=== PATIENT | male | born 1990 | race Caucasian/White ===

== ENCOUNTER 2018-06-10 09:30 | Outpatient (CLI) | payer MEDICAID, SELFPAY ==
--- NOTE | 2018-06-10 09:16 | DI.RAD_ITS ---
SYMPTOMS/DIAGNOSIS: RT WRIST PAIN RIGHT WRIST: Four views. No priors. No bone, joint or soft tissue abnormality is identified.
== END 2018-06-10 09:50 ==
PROVIDERS: PCP Internal Medicine; Visit Provider Physician Assistant
DX: M25.531 Pain in right wrist (principal)
CPT/HCPCS: 73110

== ENCOUNTER 2018-06-10 15:38 | Outpatient (CLI) | payer MEDICAID, SELFPAY ==
--- NOTE | 2018-06-10 09:33 | DI.RAD_ITS ---
SYMPTOMS/DIAGNOSIS: RT SHOULDER PAIN RIGHT SHOULDER: Two views. Comparison 08/09/15. No bone, joint or soft tissue abnormality is identified.
== END 2018-06-10 15:58 ==
PROVIDERS: PCP Internal Medicine; Visit Provider Physician Assistant
DX: M25.511 Pain in right shoulder (principal)
CPT/HCPCS: 73030

== ENCOUNTER 2018-06-14 01:55 | Outpatient (CLI) | payer MEDICAID, SELFPAY ==
--- NOTE | 2018-06-14 14:26 | DI.CT_ITS ---
SYMPTOM/DIAGNOSIS: RT WRIST PAIN, M25.[address]: Multiple contiguous axial images of the right wrist were obtained. Sagittal and coronal reformatted images were evaluated on the Siemens work station. No acute fracture or dislocation is seen. The bones are normally mineralized. No suspicious lytic or sclerotic lesions are seen. The joint spaces are well maintained. The soft tissues appear grossly unremarkable on this noncontrast examination. No soft tissue mass or focal fluid collection is appreciated. IMPRESSION: Negative examination. If there is continued concern for soft tissue, ligament or tendon injury, MRI should be considered for further evaluation.
== END 2018-06-14 02:15 ==
PROVIDERS: PCP Internal Medicine; Visit Provider Orthopaedic Surgery
DX: M25.531 Pain in right wrist (principal)
CPT/HCPCS: 73200

== ENCOUNTER 2018-07-14 00:21 | Outpatient (CLI) | payer MEDICAID, SELFPAY ==
--- NOTE | 2018-07-14 14:39 | DI.MRI_ITS ---
SYMPTOMS/DIAGNOSIS: CYST IN LUNATE BONE, M85.40, PAIN, LOCKING MRI OF THE RIGHT WRIST: Routine noncontrast examination was performed. A marker was placed on the volar aspect of the wrist at the level of the radiocarpal joint. The marrow signal is within normal limits. No evidence of an occult fracture or avascular necrosis. No cyst is seen in the lunate. The triangular fibrocartilage appears well maintained. The scapholunate ligament appears intact. The carpal tunnel appears grossly unremarkable. The tendons in the dorsum and volar aspects of the wrists are unremarkable. There is a small fluid collection seen adjacent to the volar aspect of the ulnar styloid process measuring 0.7 x 0.4 cm. This may represent a small ganglion cyst. No other focal fluid collection is seen. No soft tissue masses are appreciated. The muscles show normal signal and size. No significant muscular fatty atrophy is appreciated. IMPRESSION: 1. No evidence of a cyst within the lunate. 2. A 0.7 cm cystic lesion adjacent to the ulnar styloid process. This may represent a small ganglion cyst.
== END 2018-07-14 00:41 ==
PROVIDERS: PCP Internal Medicine; Visit Provider Orthopaedic Surgery
DX: M25.531 Pain in right wrist (principal); M25.832 Other specified joint disorders, left wrist
CPT/HCPCS: 73221

== ENCOUNTER 2018-07-23 07:47 | Outpatient (CLI) | payer MEDICAID, SELFPAY ==
--- NOTE | 2018-07-23 10:53 | W.PREOPHP ---
Date of service: 07/23/18 Time of Service: 09:55 Assessment and Plan (1) Arthritis of right acromioclavicular joint: Current visit: No Status: Chronic Chronic AC joint DJD changes with overhead lifting pain and cross arm abduction pain. The anatomy operative procedure and typical postop course is reviewed with Chava as well as the few complications that can occur with surgery consisting of infection and stiffness post surgery that does not improve with shoulder range of motion at home and/or with PT. History of Present Illness This 27-year-old [id number] male has been troubled by chronic shoulder pain of an atraumatic nature over the last 3-4 years typically getting subacromial space injection yearly which afforded some brief relief of discomfort but no long lasting relief the last injection he received gave him about 1 months discomfort improvement. He notes pain especially with abduction at the 90 degree gregory and further. X-rays done to workup his problem have shown increased DJD changes at his AC joint with normal glenohumeral joint and no ectopic calcifications. Dr. Camargo has evaluated Chava and recommended distal clavicle resection since conservative measures are not affording any long lasting relief.. Narrative: right shoulder pain Pertinent Surgical Information Denies previous medical history of: stroke, TIA, [place], use of sublingual nitroglycerin, GERD, seizures, diabetes, thyroid disease, sleep apnea, liver disease, hepatitis, hematologic disorders Denies previous complications from surgery or anesthesic agents with respect to high fever, prolonged vomiting and difficulty waking up Review of Systems Constitutional Denies fever(s) ENT Reports nasal congestion, Reports nasal discharge and Reports sore throat Cardiovascular Denies chest pain, Denies chest pain with activity, Denies palpitations, Denies dyspnea on exertion, Denies orthopnea and Denies paroxysmal nocturnal dyspnea Respiratory Denies cough, Denies excessive phlegm production, Denies pain on inspiration, Denies dyspnea on exertion and Denies wheezing Gastrointestinal Denies abdominal pain, Denies melena, Denies hematochezia, Denies nausea and Denies vomiting Genitourinary Denies hematuria, Denies dysuria and Denies urinary frequency Comments: Denies burning sensation with urination Musculoskeletal Reports as per HPI Psychiatric Denies anxiety and Denies depression Endocrine Denies palpitations Allergic/Immunologic Denies wheezing [facility] Surgical History H/O nasal septoplasty (Acute) History of bone graft (Acute) Repair, Cleft Palate (Chronic) Social History Smoking/Tobacco Use Status: Never Drug use: Never Substance use type: does not use Do you feel safe at home: Yes Do you feel safe in your relationship?: Yes Meds Home Medications Medication Instructions Recorded Confirmed Type ibuprofen 600 mg PO PRN PRN 07/23/18 07/23/18 History multivitamin 1 tab PO DAILY 07/23/18 07/23/18 History oxymetazoline [Nasal [place] 2 spray INTRANASAL Q12H PRN 07/23/18 07/23/18 History (oxymetazoline)] phenol [Chloraseptic Throat [place]] 4 spray MUCOUS MEMBRANE Q4H PRN 07/23/18 07/23/18 History Allergies Allergy/AdvReac Type Severity Reaction Status Date / Time No Known Drug Allergies Allergy Unverified 07/23/18 09:03 Exam Const General: cooperative HENMT Throat: posterior oropharynx normal Eyes General: appearance normal, both eyes and all related structures Conjunctivae: conjunctivae normal Sclera: sclerae normal Neck Neck: no JVD Carotids: normal carotid upstroke and no bruits Resp Effort & Inspection: normal respiratory effort and able to speak in complete sentences Auscultation: clear to auscultation bilaterally, no rales, no rhonchi and no wheezes Cardio Rate: regular rate Heart Sounds: S1 normal, S2 normal and no murmurs Bruits: no abdominal aortic bruits Pulses: normal peripheral pulses Other: No pulsatile mass noted with palpation over the abdominal aorta GI Palpation: soft and no hepatosplenomegaly Auscultation: normal bowel sounds General: No CVA tenderness Extrem General: no pedal edema Other: Right shoulder shows point tenderness over AC joint with pain with abduction at 90-120 degree gregory. He has pain with scarf testing normal rotator cuff strength with resisted external rotation resisted abduction and belly press testing.
--- NOTE | 2018-07-23 11:19 | HPE_ITS ---
Date of service: 07/23/18 Time of Service: 09:55 Assessment and Plan (1) Arthritis of right acromioclavicular joint: Current visit: No Status: Chronic Chronic AC joint DJD changes with overhead lifting pain and cross arm abduction pain. The anatomy operative procedure and typical postop course is reviewed with Chava as well as the few complications that can occur with surgery consisting of infection and stiffness post surgery that does not improve with shoulder range of motion at home and/or with PT. History of Present Illness This 27-year-old [id number]-zbginuzx male has been troubled by chronic shoulder pain of an atraumatic nature over the last 3-4 years typically getting subacromial space injection yearly which afforded some brief relief of discomfort but no long lasting relief the last injection he received gave him about 1 months discomfort improvement. He notes pain especially with abduction at the 90 degree gregory and further. X-rays done to workup his problem have shown increased DJD changes at his AC joint with normal glenohumeral joint and no ectopic calcifications. Dr. Camargo has evaluated Chava and recommended distal clavicle resection since conservative measures are not affording any long lasting relief.. Narrative: right shoulder pain Pertinent Surgical Information Denies previous medical history of: stroke, TIA, [place], use of sublingual nitroglycerin, GERD, seizures, diabetes, thyroid disease, sleep apnea, liver disease, hepatitis, hematologic disorders Denies previous complications from surgery or anesthesic agents with respect to high fever, prolonged vomiting and difficulty waking up Review of Systems Constitutional Denies fever(s) ENT Reports nasal congestion, Reports nasal discharge and Reports sore throat Cardiovascular Denies chest pain, Denies chest pain with activity, Denies palpitations, Denies dyspnea on exertion, Denies orthopnea and Denies paroxysmal nocturnal dyspnea Respiratory Denies cough, Denies excessive phlegm production, Denies pain on inspiration, Denies dyspnea on exertion and Denies wheezing Gastrointestinal Denies abdominal pain, Denies melena, Denies hematochezia, Denies nausea and Denies vomiting Genitourinary Denies hematuria, Denies dysuria and Denies urinary frequency Comments: Denies burning sensation with urination Musculoskeletal Reports as per HPI Psychiatric Denies anxiety and Denies depression Endocrine Denies palpitations Allergic/Immunologic Denies wheezing [facility] Surgical History H/O nasal septoplasty (Acute) History of bone graft (Acute) Repair, Cleft Palate (Chronic) Social History Smoking/Tobacco Use Status: Never Drug use: Never Substance use type: does not use Do you feel safe at home: Yes Do you feel safe in your relationship?: Yes Meds Home Medications Medication Instructions Recorded Confirmed Type ibuprofen 600 mg PO PRN PRN 07/23/18 07/23/18 History multivitamin 1 tab PO DAILY 07/23/18 07/23/18 History oxymetazoline [Nasal [place] 2 spray INTRANASAL Q12H PRN 07/23/18 07/23/18 History (oxymetazoline)] phenol [Chloraseptic Throat [place]] 4 spray MUCOUS MEMBRANE Q4H PRN 07/23/18 07/23/18 History Allergies Allergy/AdvReac Type Severity Reaction Status Date / Time No Known Drug Allergies Allergy Unverified 07/23/18 09:03 Exam Const General: cooperative HENMT Throat: posterior oropharynx normal Eyes General: appearance normal, both eyes and all related structures Conjunctivae: conjunctivae normal Sclera: sclerae normal Neck Neck: no JVD Carotids: normal carotid upstroke and no bruits Resp Effort & Inspection: normal respiratory effort and able to speak in complete sentences Auscultation: clear to auscultation bilaterally, no rales, no rhonchi and no wheezes Cardio Rate: regular rate Heart Sounds: S1 normal, S2 normal and no murmurs Bruits: no abdominal aortic bruits Pulses: normal peripheral pulses Other: No pulsatile mass noted with palpation over the abdominal aorta GI Palpation: soft and no hepatosplenomegaly Auscultation: normal bowel sounds General: No CVA tenderness Extrem General: no pedal edema Other: Right shoulder shows point tenderness over AC joint with pain with abduction at 90-120 degree gregory. He has pain with scarf testing normal rotator cuff strength with resisted external rotation resisted abduction and belly press testing.
== END 2018-07-23 08:07 ==
PROVIDERS: PCP Internal Medicine; Visit Provider Orthopaedic Surgery
DX: M19.011 Primary osteoarthritis, right shoulder (principal); Z01.818 Encounter for other preprocedural examination

== ENCOUNTER 2018-07-26 11:21 | Day surgery (SDC) | payer MEDICAID, SELFPAY ==
[2018-07-26] VITALS (7 sets, daily range): BP systolic 118–136; BP diastolic 78–84; PULSE 64–80; RESP 11–16; TEMP 35.1–36.5; O2SAT 96–98
[2018-07-26] MEDS: Lactated Ringers 1,000 ML 80 ML IV (12:17)
[2018-07-26] MEDS: ceFAZolin 2 GM/50 ML BAG IVPB (14:19)
--- NOTE | 2018-07-26 14:53 | PDOC.DSDIS_ITS ---
Discharge Plan Disposition Patient Disposition: HOME Condition: Good Discharge Details Reason For Visit: Excision R distal clavicle Attending Provider: Nahum Camargo Primary Care Provider: Myesha Carrington Home Meds and New Rx's Prescriptions: New oxycodone-acetaminophen 5-325 mg tablet 1 tab PO Q6H PRN (Reason: pain) Qty: 10 RF: 0 Continued ibuprofen 200 mg Capsule 600 mg PO PRN PRNRF: 0 multivitamin Tablet,Chewable 1 tab PO DAILY RF: 0 Chloraseptic Throat [place] 1.4 % Aerosol,St[place]div[place] 4 spray MUCOUS MEMBRANE Q4H PRNRF: 0 oxymetazoline [Nasal [place] (oxymetazoline)] 0.05 % [place],Non-Aerosol 2 spray INTRANASAL Q12H PRNRF: 0 Discharge Instructions Additional Instructions: Take ibuprofen 600-800 mg every 6hours as needed for mild pain. Take oxycodone, in addition, for breakthru pain if needed. Apply cryocuff to R shoulder continuously overnite tonite. Tomorrow, start to use 4 times/day for 1 hour each time. Sling for comfort. Discontinue sling as soon as your discomfort allows. May remove dressings, shower and get incision wet after 72 hours. Leave incision uncovered when it is dry and sealed. Follow up with in 2 weeks. Stand Alone Forms: DSU Post op Instructions, Alex Davis ([facility]) Referrals: Nahum Camargo MD [ [facility] STAFF PHYSICIAN] - (f/u in 2 weeks.) Equipment/Supplies: Sling Activity:: Activity as Tolerated Remove Dressings/Wound Care:: 72 hours Shower/Bathe:: 72 hours Diet:: As Tolerated Discharge Orders Discharge Orders: Discharge Order (Routine); Ordered 07/26/18 Ordered By: Nahum Camargo DS: Diagnosis Discharge Diagnosis (1) Arthritis of right acromioclavicular joint: Status: Chronic
--- NOTE | 2018-07-27 16:24 | ROE_ITS ---
DATE OF PROCEDURE: July 26, 2018 PREOPERATIVE DIAGNOSIS: DJD AC joint, right. POSTOPERATIVE DIAGNOSIS: Same. PROCEDURE: Excision distal clavicle, right. ANESTHESIA: General. SURGEON: Nahum Camargo M.D. PAYROLL DIRECTOR: Larry Bautista INDICATIONS: This is a 27-year-old white male with long-standing history of pain localized to the ri ght AC joint. In the past he had gotten relief from subacromial space injections. His pain has prog ressed to the point where the injections are no longer providing long-term relief. His pain is aggra vated by use of his right hand above shoulder level. Excision of the distal clavicle was recommended to decompress his AC joint and alleviate his pain on a permanent basis. The risks and complications of the procedure were explained to the patient in detail preoperatively. PROCEDURE: The patient was taken to the Operating Room on 07/26/18. He was placed supine on the oper ating table and a general anesthetic was administered. He was then placed in the benson chair positi on. The right shoulder was prepped and draped free in the usual sterile fashion. An incision was made on the superior aspect of the shoulder, centered over the AC joint; the incision was about three inches in length. The incision was carried down through the skin and subcu to the c apsule of the AC joint. The subcutaneous veins were cauterized. An incision was made on the superio r AC joint capsule and the distal clavicle was subperiosteally exposed. The distal clavicle was lopez sected with an oscillating saw and the distal centimeter of the clavicle was excised. On inspection there was no normal articular cartilage left on the distal clavicle, consistent with DJD. The resect ed end of the clavicle was irrigated with saline solution and packed with bone was to limit postop bl eeding. The wound margins, starting with the AC joint capsule and progressing up to the skin, were i nfiltrated with 0.5% Marcaine with an epinephrine solution. The AC joint capsule and periosteum over the distal clavicle were approximated with interrupted [id number] sutures of #1 Vicryl suture m aterial. The subcu was approximated with interrupted #2-0 Vicryl sutures. The skin edges were appro ximated with a running subcuticular suture of #4-0 Vicryl, supplemented with Steri-Strips. Sterile d ressings were applied followed by a light pressure dressing to the right shoulder. The patient's arm was placed in a sling. His anesthesia was reversed without complications. He was discharged to the recovery room in good condition. The patient was discharged home from the Day Surgery Unit when fully recovered from his general anest hesia. He was given instructions to use the sling for comfort. He should discontinue the sling as s oon as discomfort allows. He may remove his dressings, shower and get his incision wet after 72 hour s. He can leave his incision uncovered when it is dry and sealed. He may move his right upper extre mity within limits of pain. He was given a prescription for breakthrough pain of Oxycodone with APAP 5/325, one tablet every six hours, as needed. He will take Tylenol or ibuprofen for mild pain. He will follow-up with me in two weeks.
== END 2018-07-26 16:34 | disposition home or self-care (01) ==
PROVIDERS: PCP Internal Medicine; Visit Provider Orthopaedic Surgery
PROC: (CPT 23120; principal; 2018-07-26 12:30)
DX: M19.011 Primary osteoarthritis, right shoulder (principal); G89.29 Other chronic pain; M25.511 Pain in right shoulder
CPT/HCPCS: 23120; J0690; J1100; J1885; J2250; J2405; J3010; L3650

== ENCOUNTER 2019-12-05 02:11 | Outpatient (CLI) | payer OTHER, MEDICAID, SELFPAY ==
--- NOTE | 2019-12-05 08:45 | DI.US_ITS ---
EXAM: US HERNIA CLINICAL HISTORY: Possible inguinal hernia, exam equivacable, LT GROIN PAIN, R10.32. TECHNIQUE: Ultrasound was performed using standard protocol. COMPARISON: No exams were available for comparison FINDINGS: Sonographic assessment utilizing grayscale and color Doppler imaging was performed and targeted to th e area of clinical concern. Left lower quadrant and mid lower abdomen was evaluated sonographically for evidence of a hernia. No sonographic evidence of a hernia is identified. IMPRESSION: No sonographic evidence of a hernia. DATA REPOSITORY:
== END 2019-12-05 02:31 ==
PROVIDERS: PCP Internal Medicine; Visit Provider Family Medicine
DX: R10.32 Left lower quadrant pain (principal)
CPT/HCPCS: 76857

== ENCOUNTER 2020-05-22 02:59 | Outpatient (CLI) | payer MEDICAID, SELFPAY ==
[2020-05-23 13:27] LABS: COVID-19 RT-PCR UVMMC Result Negative (Negative)
== END 2020-05-22 03:00 | disposition home or self-care (01) ==
LOC: LBO 02:59
PROVIDERS: PCP Internal Medicine; Visit Provider Internal Medicine
DX: Z20.822 Contact with and (suspected) exposure to COVID-19 (principal)
CPT/HCPCS: U0003

== ENCOUNTER → 2021-08-15 17:24 | Outpatient (CLI) | payer BC, MEDICAID, SELFPAY ==
--- NOTE | 2021-08-15 15:30 | DI.RAD_ITS ---
Exam(s) XR SHOULDER RT COMPLETE 2+V EXAM: XR SHOULDER RT COMPLETE 2+V CLINICAL HISTORY: R shoulder pain Z98.890 h/o surgery M25.511 PAIN RT SHOULDER TECHNIQUE: COMPARISON: CR XR shoulder RT complete 2+V from 06/10/2018 FINDINGS: Five views were obtained. There appears to have been a prior resection of the distal end of the clav icle. No other bony or soft tissue abnormality seen. The cartilaginous joint space of the glenohume ral joint appears fairly well maintained. IMPRESSION: No evidence of acute process. RADIATION DOSE DELIVERED: Total DLP
== END ==
PROVIDERS: PCP Internal Medicine; Visit Provider Nurse Practitioner Family
DX: M25.511 Pain in right shoulder (principal); Z98.890 Other specified postprocedural states
CPT/HCPCS: 73030

== ENCOUNTER → 2021-11-25 02:57 | Outpatient (CLI) | payer BC, MEDICAID, SELFPAY ==
--- NOTE | 2021-11-25 08:00 | DI.MRI_ITS ---
Exam(s) MR UPPER JOINT RT WO EXAM: MR UPPER JOINT RT WO CLINICAL HISTORY: persistent pain, weakness,arthritis rt ac joint,slap lesion,m19.011,s43.431. TECHNIQUE: Multiplanar multisequence MRI was performed. COMPARISON: CR XR SHOULDER RT COMPLETE 2+V from 08/15/2021 FINDINGS: BONES: There is no fracture or contusion pattern. There are postsurgical changes at the AC joint with resection of the distal clavicle noted. JOINTS: Postsurgical changes at the AC joint as described above. The glenohumeral joint is normal. TENDONS: Supraspinatus: There is no evidence of a supraspinatus tear. There does appear to be very mild hyper intense signal seen in the supraspinatus tendon suggesting tendinosis. Infraspinatus: Unremarkable. Subscapularis: Unremarkable. Teres [place]: Unremarkable. Biceps and [place]: Unremarkable. MUSCLES: Unremarkable. GLENOID LABRUM: Unremarkable on this noncontrast examination. SOFT TISSUES: Unremarkable. LIGAMENTS: Unremarkable. OTHER: Subacromial and subdeltoid bursae are unremarkable. IMPRESSION: 1. No evidence of a labral tear on this noncontrast examination. 2. There does appear to be very mild hyperintense signal in the supraspinatus tendon which may repres ent tendinosis. 3. Postsurgical changes at the acromioclavicular joint. DATA REPOSITORY:
== END ==
PROVIDERS: PCP Internal Medicine; Visit Provider Student in an Organized Health Care Education/Training Program
DX: M19.011 Primary osteoarthritis, right shoulder (principal); M75.21 Bicipital tendinitis, right shoulder; S43.431A Superior glenoid labrum lesion of right shoulder, initial encounter
CPT/HCPCS: 73221

== ENCOUNTER 2022-03-19 02:50 | Outpatient (CLI) | payer MEDICAID, SELFPAY ==
[2022-03-19 07:55] LABS: Anion Gap 7.3 mmol/L (3-11); BUN 17 mg/dL (7-18); CO2 28.7 mmol/L (21.0-32.0); Calcium 8.8 mg/dL (8.5-10.1); Calculated LDL 147 mg/dL (<100); Chloride 103 mmol/L (98-107); Cholesterol 210 mg/dL (<200); Estimated GFR 101.92 (mL/min/1.73m2); Glucose 92 mg/dL (74-106); HDL Cholesterol 43 mg/dL (40-60); Potassium 4.5 mmol/L (3.5-5.1); Sodium 139 mmol/L (136-145); Triglyceride 100 mg/dL (<150)
[2022-03-20 10:01] LABS: Hepatitis C Ab w Rflx HCV PCR Negative (Negative)
[2022-03-20 10:35] LABS: HIV-1/2 Ag & Ab Screen Negative (Negative)
== END 2022-03-19 02:51 | disposition home or self-care (01) ==
LOC: LBO 02:51
PROVIDERS: PCP Nurse Practitioner Family; Visit Provider Nurse Practitioner Family
DX: E78.5 Hyperlipidemia, unspecified (principal); Z13.1 Encounter for screening for diabetes mellitus; Z11.4 Encounter for screening for human immunodeficiency virus [HIV]; Z11.59 Encounter for screening for other viral diseases
CPT/HCPCS: 36415; 80048; 80061; 86803; 87389